=== PATIENT | female | born 1980 ===

== ENCOUNTER 2016-10-13 05:42 | Emergency (ER) | payer BC, OTHER ==
[2016-10-13] MEDS ORDERED: Sodium Chloride 0.9% 1,000 ML IV ONE (06:08)
--- NOTE | 2016-10-13 06:11 | C.PDOC ---
History Of Present Illness 36 year old female with no PMH presents to ED with complaints of midsternal chest pain since yesterday. Patient describes pain as tightness and worse with deep inspiration. Additionally she reports frontal headache, malaise, and nausea for 2 days, she is currently on menses. She took Aleve yesterday with temporary relief. Denies any fever, cough, SOB, weakness, numbness or dizziness. Time Seen by Provider: 10/13/16 06:03 Chief Complaint (Nursing): Chest Pain History Per: Patient History/Exam Limitations: no limitations Onset/Duration Of Symptoms: Days Past Medical History Reviewed: Historical Data, Nursing Documentation, Vital Signs Vital Signs: Last Vital Signs Temp 98 F 10/13/16 05:48 Pulse 72 10/13/16 05:48 Resp 18 10/13/16 05:48 BP 131/80 10/13/16 05:48 Pulse Ox 100 10/13/16 06:40 - Medical History PMH: No Chronic Diseases Surgical History: No Surg Hx Family History: States: Diabetes, Hypertension - Social History Hx Alcohol Use: Yes Hx Substance Use: No - Immunization History Hx Tetanus Toxoid Vaccination: Yes Hx Influenza Vaccination: No Hx Pneumococcal Vaccination: No Review Of Systems Constitutional: Positive for: Malaise. Negative for: Fever Eyes: Negative for: Pain, Vision Change ENT: Negative for: Ear Pain, Nose Congestion, Throat Pain Cardiovascular: Positive for: Chest Pain. Negative for: Palpitations Respiratory: Negative for: Cough, Shortness of Breath, Wheezing Gastrointestinal: Positive for: Nausea. Negative for: Abdominal Pain, Diarrhea Genitourinary: Negative for: Dysuria, Frequency Musculoskeletal: Negative for: Shoulder Pain, Arm Pain, Back Pain Skin: Negative for: Rash Neurological: Positive for: Headache. Negative for: Weakness, Numbness, Dizziness Physical Exam - Physical Exam Appears: Non-toxic Skin: Warm, Dry, No Diaphoretic, No Rash Head: Atraumatic, Normacephalic Eye(s): bilateral: Normal Inspection, EOMI Nose: Normal Oral Mucosa: Moist Throat: Normal, No Erythema, No Exudate Neck: Normal ROM Chest: Symmetrical, Tenderness (midsternal) Cardiovascular: Rhythm Regular, No Murmur Respiratory: Normal Breath Sounds, No Rales, No Rhonchi, No Wheezing Gastrointestinal/Abdominal: Normal Exam, Soft, No Tenderness, No Distention, No Guarding Back: Normal Inspection, No CVA Tenderness, No Vertebral Tenderness, No Paraspinal Tenderness Extremity: Bilateral: Atraumatic, No Pedal Edema, Normal Color And Temperature, Normal ROM Neurological/Psych: Oriented x3, Normal Speech, Normal Motor, Normal Sensation Gait: Steady ED Course And Treatment ECG: Interpreted By Me, Viewed By Me (and Dr Lane) ECG Rhythm: Sinus Rhythm ECG Interpretation: No Acute Changes Interpretation Of ECG: NS at 67 bpm with PAC, no acute ST-T changes O2 Sat by Pulse Oximetry: 100 (room air) Pulse Ox Interpretation: Normal - Radiology CXR: Interpreted by Me, Viewed By Me CXR Interpretation: Yes: No Acute Disease Medical Decision Making Medical Decision Making: Impression: 36 y.o female with midsternal chest pain, headache nausea. Suspect anxiety, musculoskeletal, , less likely ACS Plan: * EKG * CXR * Labs * IV NS, Reglan Progress: Patient assessed and examined. EKG obtained and reviewed and NS with PAC. CXR shows no acute cardiopulmonary process. Labs ordered. Case signed out to YAN Holloway, pending labs and re-eval. 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 Physician Patient Turnover Patient Signed Over To: Zoila Holloway Handoff Comments: Pending labs, re-eval and dispo
[2016-10-13 06:51] LABS: BASO # 0.1 K/uL (0.0-0.2); EOS # 0.2 K/uL (0.0-0.7); EOS % 1.7 % (0.0-4.0); HEMATOCRIT 37.1 % (34.0-47.0); LYMPH # 2.9 K/uL (1.0-4.3); LYMPH % 29.4 % (20.0-40.0); MEAN CORPUSCULAR HEMOGLOBIN 28.1 pg (27.0-31.0); MEAN CORPUSCULAR HGB CONC 33.1 g/dL (33.0-37.0); MEAN PLATELET VOLUME 8.3 fL (7.2-11.7); MONO # 0.6 K/uL (0.0-0.8); MONO % 6.3 % (0.0-10.0); RED CELL DISTRIBUTION WIDTH 13.2 % (11.5-14.5)
[2016-10-13 06:52] LABS: CHLORIDE 99 mmol/L (98-107); SODIUM 137 mmol/L (132-148)
[2016-10-13 06:53] LABS: POTASSIUM 3.3 mmol/L (3.6-5.2)
[2016-10-13 06:55] LABS: ALB/GLOB RATIO 1.3 (1.0-2.1); AST/SGOT 22 U/L (14-36); BILIRUBIN,TOTAL 0.7 mg/dL (0.2-1.3); BLOOD UREA NITROGEN 11 mg/dL (7-17); CARBON DIOXIDE 28 mmol/L (22-30); GFR AFRICAN-AMERICAN > 60; GLUCOSE,RANDOM 85 mg/dL (65-105); TOTAL PROTEIN 7.2 g/dL (6.3-8.3)
[2016-10-13 06:56] LABS: ALKALINE PHOSPHATASE 49 U/L (38-126); ALT/SGPT 15 U/L (9-52); CALCIUM 9.1 mg/dl (8.6-10.4)
[2016-10-13 07:32] VITALS: RESP 20
[2016-10-13 07:46] LABS: RBC URINE 4 /hpf (0-3); URINE BACTERIA OCC (<OCC); URINE BILIRUBIN NEGATIVE (NEGATIVE); URINE BLOOD 3+ (NEGATIVE); URINE COLOR Straw (YELLOW); URINE GLUCOSE (UA) NORMAL (Normal); URINE KETONE NEGATIVE (NEGATIVE); URINE LEUKOCYTE ESTERASE NEG Leu/uL (Negative); URINE PROTEIN NEGATIVE (NEGATIVE); URINE UROBILINOGEN NORMAL mg/dL (0.2-1.0); WBC URINE 3 /hpf (0-5)
[2016-10-13 08:23] VITALS: BP 110/71; PULSE 78; TEMP 98; O2SAT 98
--- NOTE | 2016-10-13 09:49 | RAD ---
HISTORY: pain COMPARISON: No prior. TECHNIQUE: Chest PA and lateral FINDINGS: LUNGS: Biapical pleural thickening with upper lobe granulomatous changes. No focal infiltrate or effusion. Bibasilar breast and nipple shadows. PLEURA: No significant pleural effusion identified. No pneumothorax apparent. CARDIOVASCULAR: Normal. OSSEOUS STRUCTURES: No significant abnormalities. VISUALIZED UPPER ABDOMEN: Normal. OTHER FINDINGS: None. IMPRESSION: No active disease.
--- NOTE | 2016-10-16 17:50 | CARD ---
APPROVED REPORT EKG Measurement Heart [id number] <Conclusion> Sinus rhythm with premature atrial complexes Otherwise normal ECG
== END 2016-10-13 08:23 | disposition home or self-care (01) ==
LOC: SUPCPDRO 05:42 → C.ER 05:42
DX: R07.89 Other chest pain (principal)
CPT/HCPCS: 71020; 80053; 81001; 84484; 85025; 93005; 99284; J2765; J7040

== ENCOUNTER 2017-02-10 23:57 | Emergency (ER) | payer OTHER ==
[2017-02-11 00:06] VITALS: O2SAT 99
[2017-02-11] MEDS ORDERED: Albuterol-Ipratrop 3 mg / 0.5 (3 ml) UD IH STA (00:35)
[2017-02-11] MEDS ORDERED: Albuterol 0.083% Inhal Sol (2.5 mg/3 mL) UD IH STA (00:38)
[2017-02-11] MEDS ORDERED: Albuterol 0.083% Inhal Sol (2.5 mg/3 mL) UD ONE (00:39)
[2017-02-11 01:11] VITALS: RESP 18
[2017-02-11 01:28] VITALS: BP 112/72; PULSE 93; TEMP 98.2
--- NOTE | 2017-02-11 01:29 | C.PDOC ---
History Of Present Illness 37 year old female who presents to the ER with a complaint of generalized body aches, nasal congestion, and cough with pain to the bilateral side of her chest pain described as tightness. Patient denies SOB, fever, or recent travel. Time Seen by Provider: 02/11/17 00:15 Chief Complaint (Nursing): Chest Pain History Per: Patient History/Exam Limitations: no limitations Onset/Duration Of Symptoms: Days Current Symptoms Are (Timing): Still Present Location Of Pain: Diffuse Myalgias, Other (Bilateral sides of chest with cough) Sick Contacts (Context): None Associated Symptoms: Cough (w/ pain to bilateral sides of chest), Nasal Congestion. denies: Fever, Other (Chest pain) Recent travel outside of the [place]: No Past Medical History Reviewed: Historical Data, Nursing Documentation, Vital Signs Vital Signs: Last Vital Signs Temp 98.2 F 02/11/17 01:27 Pulse 93 H 02/11/17 01:27 Resp 18 02/11/17 01:27 BP 112/72 02/11/17 01:27 Pulse Ox 99 02/11/17 05:39 - Medical History PMH: No Chronic Diseases Surgical History: No Surg Hx Family History: States: Diabetes, Hypertension - Social History Hx Alcohol Use: Yes Hx Substance Use: No - Immunization History Hx Tetanus Toxoid Vaccination: Yes Hx Influenza Vaccination: Yes Hx Pneumococcal Vaccination: No Review Of Systems Constitutional: Negative for: Fever, Chills ENT: Positive for: Nose Congestion Respiratory: Positive for: Cough Musculoskeletal: Positive for: Other (Generalized body aches) Physical Exam - Physical Exam Appears: Non-toxic, No Acute Distress Skin: Normal Color, Warm, Dry Head: Atraumatic, Normacephalic Eye(s): bilateral: Normal Inspection, PERRL Nose: Other (Congestion) Oral Mucosa: Moist Throat: Normal, No Erythema, No Exudate Neck: Normal, Supple Chest: Symmetrical, No Tenderness Cardiovascular: Rhythm Regular Respiratory: Normal Breath Sounds, No Accessory Muscle Use, No Rales, No Rhonchi , No Stridor, No Wheezing Neurological/Psych: Oriented x3, Normal Speech Gait: Steady ED Course And Treatment ECG: Interpreted By Me, Viewed By Me ECG Rhythm: Sinus Rhythm (at 95) O2 Sat by Pulse Oximetry: 99 Pulse Ox Interpretation: Normal - Radiology CXR: Interpreted by Me, Viewed By Me CXR Interpretation: Yes: No Acute Disease Progress Note: CXR ordered. Motrin, prednisone, and nebulizer treatment administered. On reevaluation, patient states she feels better and is in no acute distress; will discharge home with Rx and instructions to follow up with PMD. Disposition Counseled Patient/Family Regarding: Studies Performed, Diagnosis, Need For Followup, Rx Given - Disposition Referrals: [facility] [Outside] Disposition: HOME/ ROUTINE Disposition Time: :27 Condition: STABLE Additional Instructions: Increase po fluids Take meds as directed Return to ER if worse Prescriptions: Benzonatate [Tessalon Perles] 100 mg PO TID #20 sgl Cetirizine HCl [Zyrtec] 10 mg PO DAILY #20 capsule Ibuprofen [Motrin] 600 mg PO Q6H #30 tab predniSONE [Prednisone] 40 mg PO DAILY #6 tab Instructions: Upper Respiratory Infection (ED) Forms: [facility] (Hungarian), Work Excuse - Clinical Impression Clinical Impression: Respiratory tract infection - Scribe Statement The provider has reviewed the documentation as recorded by the Scribe Armando Carolina All medical record entries made by the Scribe were at my direction and personally dictated by me. I have reviewed the chart and agree that the record accurately reflects my personal performance of the history, physical exam, medical decision making, and the department course for this patient. I have also personally directed, reviewed, and agree with the discharge instructions and disposition.
--- NOTE | 2017-02-11 07:59 | RAD ---
HISTORY: cough, chest tightness COMPARISON: Comparison is made to 10/13/2016 TECHNIQUE: Chest PA and lateral FINDINGS: LUNGS: No active pulmonary disease. PLEURA: No significant pleural effusion identified. No pneumothorax apparent. CARDIOVASCULAR: Normal. OSSEOUS STRUCTURES: No significant abnormalities. VISUALIZED UPPER ABDOMEN: Normal. OTHER FINDINGS: None. IMPRESSION: No active disease.
== END 2017-02-11 01:35 | disposition home or self-care (01) ==
LOC: C.ER 23:57
DX: J98.8 Other specified respiratory disorders (principal)

== ENCOUNTER 2017-02-17 12:48 | Emergency (ER) | payer OTHER ==
[2017-02-17] MEDS ORDERED: Sodium Chloride 0.9% 1,000 ML IV ONE ×2 (13:25→14:41)
[2017-02-17 13:40] LABS: RBC URINE 1 /hpf (0-3); URINE BACTERIA OCC (<OCC); URINE BILIRUBIN NEGATIVE (NEGATIVE); URINE BLOOD NEGATIVE (NEGATIVE); URINE COLOR Yellow (YELLOW); URINE GLUCOSE (UA) NORMAL (Normal); URINE KETONE NEGATIVE (NEGATIVE); URINE LEUKOCYTE ESTERASE NEG Leu/uL (Negative); URINE PROTEIN NEGATIVE (NEGATIVE); URINE UROBILINOGEN NORMAL mg/dL (0.2-1.0); WBC URINE 1 /hpf (0-5)
[2017-02-17 13:43] LABS: BASO % 0.4 % (0.0-2.0); EOS # 0.2 K/uL (0.0-0.7); HEMATOCRIT 36.8 % (34.0-47.0); LYMPH # 4.1 K/uL (1.0-4.3); LYMPH % 37.5 % (20.0-40.0); MEAN CELL VOLUME 83.4 fL (81.0-99.0); MEAN CORPUSCULAR HEMOGLOBIN 27.6 pg (27.0-31.0); MEAN CORPUSCULAR HGB CONC 33.1 g/dL (33.0-37.0); MEAN PLATELET VOLUME 7.8 fL (7.2-11.7); MONO # 0.5 K/uL (0.0-0.8); MONO % 4.3 % (0.0-10.0); RED CELL DISTRIBUTION WIDTH 13.3 % (11.5-14.5)
[2017-02-17] MEDS ORDERED: Sodium Chloride 0.9% 1,000 ML ONE ×2 (13:43→14:47)
[2017-02-17 13:51] LABS: CHLORIDE 99 mmol/L (98-107); POTASSIUM 3.4 mmol/L (3.6-5.2); SODIUM 134 mmol/L (132-148)
[2017-02-17 13:53] LABS: AST/SGOT 13 U/L (14-36); BILIRUBIN,TOTAL 0.3 mg/dL (0.2-1.3); CARBON DIOXIDE 24 mmol/L (22-30); GFR AFRICAN-AMERICAN > 60
[2017-02-17 13:54] LABS: ALKALINE PHOSPHATASE 52 U/L (38-126); ALT/SGPT 23 U/L (9-52); BLOOD UREA NITROGEN 12 mg/dL (7-17); CALCIUM 9.1 mg/dl (8.6-10.4); GLUCOSE,RANDOM 90 mg/dL (65-105); TOTAL PROTEIN 7.4 g/dL (6.3-8.3)
--- NOTE | 2017-02-17 14:37 | US ---
HISTORY: epigastric/RUQ tenderness COMPARISON: None available. TECHNIQUE: Sonographic evaluation of the abdomen. FINDINGS: LIVER: Measures 15.9 cm in sagittal dimension and appears unremarkable. No focal hepatic mass identified. The main portal vein appears patent with normal directional flow. No intrahepatic bile duct dilatation. GALLBLADDER: No gallstones. No gallbladder wall thickening. Negative sonographic Garcia's sign as assessed by the wearing apparel presser. COMMON BILE DUCT: Measures 5 mm. PANCREAS: Not well visualized. RIGHT KIDNEY: Measures 10.9 x 4.3 x 5.0cm. No obstructing calculus or hydronephrosis identified. LEFT KIDNEY: Measures 11.2 x 5.3 x 5.4cm. No obstructing calculus or hydronephrosis identified. SPLEEN: Measures approximately 10.1 cm. AORTA: Limited views appear unremarkable. IVC: Limited views appear unremarkable. OTHER FINDINGS: None. IMPRESSION: Unremarkable abdominal sonogram with findings as above.
[2017-02-17 15:33] VITALS: RESP 18; TEMP 97.6
[2017-02-17] MEDS ORDERED: Aluminum Hydroxide/Magnesium Hydroxide Susp (30 mL) PO STA (15:43)
[2017-02-17] MEDS ORDERED: Alum-Mag Hydrox-Simethicone Susp (30 mL) ONE (15:45)
[2017-02-17 17:34] VITALS: BP 118/76; PULSE 86; O2SAT 99
--- NOTE | 2017-02-17 18:08 | C.PDOC ---
History Of Present Illness 37 year old female presents to the ED for evaluation of abdominal pain, nausea and vomiting which began at around 0630 this morning. Patient is unsure how many episodes of vomiting she has had. Patient states her diet has mostly consisted of home-cooked meals, aside from eating pizza last night. Patient denies fever, chills, bloody vomitus, bloody stool, diarrhea, constipation, dysuria, or recent travel. Time Seen by Provider: 02/17/17 13:16 Chief Complaint (Nursing): Abdominal Pain History Per: Patient History/Exam Limitations: no limitations Onset/Duration Of Symptoms: Hrs Current Symptoms Are (Timing): Still Present Quality Of Discomfort: "Pain" Associated Symptoms: Nausea, Vomiting. denies: Fever, Chills, Urinary Symptoms Additional History Per: Patient Abnormal Vaginal Bleeding: No Past Medical History Reviewed: Historical Data, Nursing Documentation, Vital Signs Vital Signs: Last Vital Signs Temp 97.6 F 02/17/17 15:32 Pulse 86 02/17/17 17:33 Resp 18 02/17/17 17:33 BP 118/76 02/17/17 17:33 Pulse Ox 99 02/17/17 18:15 - Medical History PMH: No Chronic Diseases Surgical History: No Surg Hx Family History: States: Diabetes, Hypertension - Social History Hx Alcohol Use: Yes Hx Substance Use: No - Immunization History Hx Tetanus Toxoid Vaccination: Yes Hx Influenza Vaccination: Yes Hx Pneumococcal Vaccination: No Review Of Systems Constitutional: Negative for: Fever, Chills Gastrointestinal: Positive for: Nausea, Vomiting, Abdominal Pain (diffuse ) Genitourinary: Negative for: Dysuria Physical Exam - Physical Exam Appears: Non-toxic, No Acute Distress Skin: Normal Color, Warm, Dry Head: Atraumatic, Normacephalic Eye(s): bilateral: Normal Inspection Oral Mucosa: Moist Neck: Supple Chest: Symmetrical, No Deformity, No Tenderness Cardiovascular: Rhythm Regular, No Murmur Respiratory: Normal Breath Sounds, No Rales, No Rhonchi, No Wheezing Gastrointestinal/Abdominal: Bowel Sounds (unremarkable ), Soft, Tenderness ( epigastric ), No Guarding, No Rebound Extremity: Normal ROM, Capillary Refill (less than 2 seconds ) Neurological/Psych: Oriented x3, Normal Speech, Normal Cognition Gait: Steady ED Course And Treatment - Laboratory Results Result Diagrams: 02/17/17 13:40 02/17/17 13:40 O2 Sat by Pulse Oximetry: 99 (on RA) Pulse Ox Interpretation: Normal Progress Note: labs, US Abdomen ordered and reviewed. Patient received Maalox PO , Pepcid IVP, Reglan IVP, Tylenol PO, Zofran IVP and IV Fluids. On reassessment , patient is resting comfortably, showing no signs of distress and reports an improvement in her symptoms. Patient is stable for discharge and is advised to follow up with her PMD within 1-2 days for further evaluation. Disposition - Disposition Disposition: HOME/ ROUTINE Disposition Time: 16:30 Condition: IMPROVED Additional Instructions: Thank you for letting us take care of you today. Your provider was Dr. Redmond. You were treated for abdominal pain. The emergency medical care you received today was directed at your acute symptoms. If you were prescribed any medication, please fill it and take as directed. It may take several days for your symptoms to resolve. Return to the Emergency Department if your symptoms worsen, do not improve, or if you have any other problems. Please contact your doctor or call one of the physicians/clinics you have been referred to that are listed on the Patient Visit Information form that is included in your discharge packet. Bring any paperwork you were given at discharge with you along with any medications you are taking to your follow up visit. Our treatment cannot replace ongoing medical care by a primary care provider (PCP) outside of the emergency department. Thank you for allowing the [facility] team to be part of your care today. Follow up with your doctor in 2-3 days for re-evaluation and further management. Prescriptions: Metoclopramide [Reglan] 10 mg PO Q8 PRN #10 tab PRN Reason: Nausea/Vomiting Ranitidine HCl [Zantac] 150 mg PO BID #20 tablet Instructions: Gastritis (ED), Dehydration (ED) Forms: Work Excuse - Clinical Impression Clinical Impression: Abdominal pain - Scribe Statement The provider has reviewed the documentation as recorded by the Scribe ([place]) Provider Attestation: All medical record entries made by the Scribe were at my direction and personally dictated by me. I have reviewed the chart and agree that the record accurately reflects my personal performance of the history, physical exam, medical decision making, and the department course for this patient. I have also personally directed, reviewed, and agree with the discharge instructions and disposition.
== END 2017-02-17 17:33 | disposition home or self-care (01) ==
LOC: C.ER 12:48
DX: R10.9 Unspecified abdominal pain (principal)
CPT/HCPCS: 76700; 80053; 81001; 83690; 84703; 85025; 96361; 96374; 96375; 96376; 99285; J2405; J2765; J7040

== ENCOUNTER 2017-08-03 11:54 | Emergency (ER) | payer OTHER ==
--- NOTE | 2017-08-03 12:35 | C.PDOC ---
History Of Present Illness 37 yo female c/o left knee pain for 2 weeks. Pt notes it bothers her when she is walking up the stairs and bending down. She feels like her knee is "locking" . 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 H/o Left fibular fx 8 years ago, non surgical. Pt took aleve this morning but pain persists. Denies trauma, change in sensation, change in color or temperature of the leg, weakness, h/o gout, lower leg pain or swelling. No BC. No prolong immobilization. Time Seen by Provider: 08/03/17 12:21 Chief Complaint (Nursing): Lower Extremity Problem/Injury History Per: Patient History/Exam Limitations: no limitations Onset/Duration Of Symptoms: Days (2 weeks) Current Symptoms Are (Timing): Still Present Past Medical History Vital Signs: Last Vital Signs Temp 98.2 F 08/03/17 13:13 Pulse 76 08/03/17 13:13 Resp 18 08/03/17 13:13 BP 120/82 08/03/17 13:13 Pulse Ox 100 08/03/17 13:13 Family History: States: Diabetes, Hypertension - Social History Hx Alcohol Use: Yes Hx Substance Use: No - Immunization History Hx Tetanus Toxoid Vaccination: No Hx Influenza Vaccination: Yes Hx Pneumococcal Vaccination: No Review Of Systems Except As Marked, All Systems Reviewed And Found Negative. Physical Exam - Physical Exam Appears: Well, Non-toxic, No Acute Distress Skin: Normal Color, Warm, Dry Head: Atraumatic, Normacephalic Eye(s): bilateral: Normal Inspection, EOMI Nose: Normal Oral Mucosa: Moist Neck: Normal, Normal ROM, Supple Chest: Symmetrical Respiratory: No Accessory Muscle Use Back: Normal Inspection Extremity: Normal ROM, Pedal Edema, No Calf Tenderness, Capillary Refill (<2 sec ), No Swelling Extremity: Bilateral: Atraumatic, Normal Color And Temperature, Normal ROM Pulses: Left Dorsalis Pedis: Normal, Right Dorsalis Pedis: Normal Neurological/Psych: Oriented x3, Normal Motor, Normal Sensation Gait: Steady ED Course And Treatment O2 Sat by Pulse Oximetry: 97 - Other Rad L Knee XR X-Ray: Interpreted by Me, Viewed By Me Interpretation: No fx or dislocation Progress Note: Tramadol ordered. Knee brace applied by credit risk officer. Pt instructed TRELL and to follow up with PMD/ortho in 1-2 days. Disposition - Disposition Referrals: Dillon Chester III, MD [Staff Provider] - Disposition: HOME/ ROUTINE Disposition Time: 12:41 Condition: STABLE Additional Instructions: Follow up with your PMD / bone doctor in 1-2 days. Prescriptions: Naproxen [Naprosyn] 1 tab PO BID PRN #20 tab PRN Reason: Pain Instructions: Knee Pain Forms: [facility] (Lebanese), Work Excuse - Clinical Impression Clinical Impression: Knee strain
--- NOTE | 2017-08-03 13:07 | RAD ---
PROCEDURE: Left Knee Radiographs. HISTORY: Pain. COMPARISON: None. FINDINGS: BONES: No acute fracture. Healed fracture proximal fibular diaphysis. JOINTS: Normal. No osteoarthritis. JOINT EFFUSION: None. OTHER FINDINGS: None. IMPRESSION: No acute fracture. Unremarkable knee.
[2017-08-03 13:14] VITALS: BP 120/82; PULSE 76; RESP 18; TEMP 98.2
[2017-08-03 15:35] VITALS: O2SAT 97
== END 2017-08-03 13:26 | disposition home or self-care (01) ==
LOC: C.ER 11:54
DX: S76.912A Strain of unspecified muscles, fascia and tendons at thigh level, left thigh, initial encounter (principal); X58.XXXA Exposure to other specified factors, initial encounter

== ENCOUNTER 2018-02-20 12:18 | Emergency (ER) | payer OTHER ==
[2018-02-20 12:18] VITALS: BMI 34.5
[2018-02-20 12:59] VITALS: RESP 16
--- NOTE | 2018-02-20 13:46 | C.PDOC ---
History Of Present Illness 38 y/o F c no PMHx p/w chest pain x 4 days. Pain is midsternal, characterized as pressure, nonradiating, associated with flushed feeling, nausea, and general weakness. Patient notes the symptoms began the day she was given the flu shot 1 week ago. She denies fever, chills, dyspnea, vomiting, diarrhea, constipation, dysuria, vaginal bleeding. LMP about 02/03, normal timing and flow. Time Seen by Provider: 02/20/18 13:06 Chief Complaint (Nursing): Chest Pain Past Medical History Vital Signs: Last Vital Signs Temp 99.2 F 02/20/18 12:58 Pulse 69 02/20/18 13:00 Resp 16 02/20/18 12:58 BP 108/54 L 02/20/18 12:58 Pulse Ox 99 02/20/18 12:58 - Medical History PMH: Hypothyroidism Family History: States: Unknown Family Hx, Diabetes, Hypertension - Social History Hx Alcohol Use: No Hx Substance Use: No - Immunization History Hx Tetanus Toxoid Vaccination: No Hx Influenza Vaccination: Yes Hx Pneumococcal Vaccination: No Review Of Systems Except As Marked, All Systems Reviewed And Found Negative. Constitutional: Negative for: Fever Respiratory: Negative for: Shortness of Breath Physical Exam - Physical Exam Additional Physical Exam Comments: Constitutional: No acute distress. Head: Normocephalic. Atraumatic. Eyes: PERRL. ENT: Moist mucous membranes. Neck: Supple. Cardiovascular: Regular rate. Radial pulse 2+ bilaterally. Chest: No tenderness. Respiratory: Clear to auscultation bilaterally. GI: Soft. Nontender. Nondistended. Back: No CVA tenderness. Musculoskeletal: No tenderness or swelling of extremities. Skin: No rash. Neurologic: Alert, no focal deficit. ED Course And Treatment - Laboratory Results Result Diagrams: 02/20/18 13:44 02/20/18 13:44 O2 Sat by Pulse Oximetry: 99 Medical Decision Making Medical Decision Making: EKG NSR 86 bpm, no ST/T wave changes, normal intervals CXR: HISTORY: chest pressure COMPARISON: Comparison chest 01/11/2017. TECHNIQUE: Chest PA and lateral FINDINGS: LUNGS: No active pulmonary disease. PLEURA: No significant pleural effusion identified. No pneumothorax apparent. CARDIOVASCULAR: Normal. OSSEOUS STRUCTURES: No significant abnormalities. VISUALIZED UPPER ABDOMEN: Normal. OTHER FINDINGS: None. IMPRESSION: No active disease. Labs unremarkable. Vital signs unremarkable. Discharged home, f/u PMD, return to ED for worsening dyspnea, pain, fever, vomiting, or any other problem. Disposition - Disposition Disposition: HOME/ ROUTINE Disposition Time: 14:43 Condition: STABLE Instructions: Chest Pain Forms: [facility] (Japanese), Work Excuse - Clinical Impression Clinical Impression: Chest pain
[2018-02-20 13:52] LABS: BASO % 0.3 % (0.0-2.0); EOS # 0.5 K/uL (0.0-0.7); EOS % 4.5 % (0.0-4.0); HEMOGLOBIN 12.3 g/dL (11.0-16.0); LYMPH # 2.9 K/uL (1.0-4.3); LYMPH % 27.6 % (20.0-40.0); MEAN CELL VOLUME 82.8 fL (81.0-99.0); MEAN CORPUSCULAR HEMOGLOBIN 27.6 pg (27.0-31.0); MEAN CORPUSCULAR HGB CONC 33.3 g/dL (33.0-37.0); MEAN PLATELET VOLUME 8.1 fL (7.2-11.7); MONO # 0.6 K/uL (0.0-0.8); MONO % 5.5 % (0.0-10.0); NEUT # 6.5 K/uL (1.8-7.0); NEUT % 62.1 % (50.0-75.0); NRBC % 0.1 % (0.0-2.0); RBC 4.46 Mil/uL (3.80-5.20)
[2018-02-20 13:54] LABS: URINE BACTERIA RARE (<OCC); URINE BILIRUBIN NEGATIVE (NEGATIVE); URINE BLOOD NEGATIVE (NEGATIVE); URINE CLARITY Clear (Clear); URINE COLOR Colorless (YELLOW); URINE GLUCOSE (UA) NORMAL (Normal); URINE LEUKOCYTE ESTERASE NEG Leu/uL (Negative); URINE PROTEIN NEGATIVE (NEGATIVE); URINE UROBILINOGEN NORMAL mg/dL (0.2-1.0); WHITE BLOOD COUNT 10.5 K/uL (4.8-10.8)
[2018-02-20 13:55] LABS: HCG,QUALITATIVE URINE NEGATIVE (NEGATIVE)
--- NOTE | 2018-02-20 14:03 | RAD ---
Date of service: 02/20/2018 HISTORY: chest pressure COMPARISON: Comparison chest 01/11/2017. TECHNIQUE: Chest PA and lateral FINDINGS: LUNGS: No active pulmonary disease. PLEURA: No significant pleural effusion identified. No pneumothorax apparent. CARDIOVASCULAR: Normal. OSSEOUS STRUCTURES: No significant abnormalities. VISUALIZED UPPER ABDOMEN: Normal. OTHER FINDINGS: None. IMPRESSION: No active disease.
[2018-02-20 14:05] LABS: ALB/GLOB RATIO 1.3 (1.0-2.1); ALBUMIN 4.4 g/dL (3.5-5.0); ALT/SGPT 23 U/L (9-52); AST/SGOT 17 U/L (14-36); BLOOD UREA NITROGEN 12 mg/dL (7-17); CALCIUM 9.7 mg/dl (8.6-10.4); GFR NON-AFRICAN AMERICAN > 60; LIPASE 65 U/L (23-300)
[2018-02-20 14:16] LABS: CK-MB 0.42 ng/mL (0.0-3.38)
[2018-02-20 15:15] VITALS: BP 114/75; PULSE 70; TEMP 98.2; O2SAT 100
--- NOTE | 2018-02-22 08:15 | CARD ---
APPROVED REPORT Date of service: 02/20/2018 EKG Measurement Heart [id number] ID [id number] <Conclusion> Normal sinus rhythm Normal ECG
== END 2018-02-20 15:33 | disposition home or self-care (01) ==
LOC: C.ER 12:18
DX: R07.9 Chest pain, unspecified (principal); E03.9 Hypothyroidism, unspecified

== ENCOUNTER 2018-03-15 13:12 | Emergency (ER) | payer OTHER ==
[2018-03-15 13:29] VITALS: BMI 29.9
[2018-03-15 13:32] VITALS: RESP 18; O2SAT 100
--- NOTE | 2018-03-15 14:43 | C.PDOC ---
History Of Present Illness 38 y/o female presents to ED with c/o headache, nausea, vomiting and feeling flushed for 3 days associated with generalized weakness and diarrhea. Patient reports unable to tolerate po intake and denies fever, chills, blood in stool, vision changes, dysuria or any other complaints at this time. Time Seen by Provider: 03/15/18 14:10 Chief Complaint (Nursing): Headache History Per: Patient History/Exam Limitations: no limitations Onset/Duration Of Symptoms: Days Current Symptoms Are (Timing): Still Present Past Medical History Reviewed: Historical Data, Nursing Documentation, Vital Signs Vital Signs: Last Vital Signs Temp 98.3 F 03/15/18 13:28 Pulse 78 03/15/18 13:28 Resp 18 03/15/18 13:28 BP 116/79 03/15/18 13:28 Pulse Ox 100 03/15/18 13:28 - Medical History PMH: Hypothyroidism Surgical History: No Surg Hx Family History: States: Diabetes, Hypertension - Social History Hx Alcohol Use: No Hx Substance Use: No - Immunization History Hx Tetanus Toxoid Vaccination: No Hx Influenza Vaccination: Yes Hx Pneumococcal Vaccination: No Review Of Systems Constitutional: Negative for: Fever, Chills Gastrointestinal: Positive for: Nausea, Vomiting, Abdominal Pain, Diarrhea Genitourinary: Negative for: Dysuria, Hematuria Skin: Negative for: Rash Neurological: Positive for: Headache. Negative for: Weakness, Numbness Physical Exam - Physical Exam Appears: Non-toxic Skin: Warm, Dry, No Rash Head: Atraumatic, Normacephalic Eye(s): bilateral: Normal Inspection Oral Mucosa: Moist Neck: Normal ROM, Supple Chest: Symmetrical, No Tenderness Cardiovascular: Rhythm Regular, No Friction Rub, No Murmur Respiratory: Normal Breath Sounds, No Rales, No Rhonchi, No Wheezing Gastrointestinal/Abdominal: Soft, No Tenderness, No Guarding, No Rebound Back: No CVA Tenderness Extremity: Normal ROM, No Swelling Neurological/Psych: Oriented x3, Normal Speech, Normal Cognition Gait: Steady ED Course And Treatment - Laboratory Results Result Diagrams: 03/15/18 15:01 03/15/18 15:00 O2 Sat by Pulse Oximetry: 100 (RA) Pulse Ox Interpretation: Normal Medical Decision Making Medical Decision Making: Labs and Vitals are WNLs. On re-exam, the patient reports improvement of symptoms. Lungs are CTA, heart is RRR, abdomen is soft, non-tender and the patient is tolerating PO well. Follow up with the medical doctor within 1-2 days. Return if worsened. Disposition - Disposition Referrals: [facility] [Outside] Disposition: HOME/ ROUTINE Disposition Time: 15:58 Condition: STABLE Additional Instructions: Follow up with the medical doctor within 1-2 days. Return if worsened. 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 - Scribe Statement The provider has reviewed the documentation as recorded by the Marlonibsanchez Driscoll All medical record entries made by the Marlonibsanchez were at my direction and personally dictated by me. I have reviewed the chart and agree that the record accurately reflects my personal performance of the history, physical exam, medical decision making, and the department course for this patient. I have also personally directed, reviewed, and agree with the discharge instructions and disposition.
[2018-03-15] MEDS ORDERED: DiphenhydrAMINE 50 mg/ml Inj IVP STA (14:44)
[2018-03-15 15:09] LABS: SQUAMOUS EPITHIAL 3 /hpf (0-5); URINE BACTERIA RARE (<OCC); URINE BILIRUBIN NEGATIVE (NEGATIVE); URINE BLOOD 1+ (NEGATIVE); URINE CLARITY Hazy (Clear); URINE COLOR Yellow (YELLOW); URINE GLUCOSE (UA) NORMAL (Normal); URINE LEUKOCYTE ESTERASE NEG Leu/uL (Negative); URINE PROTEIN NEGATIVE (NEGATIVE); URINE UROBILINOGEN NORMAL mg/dL (0.2-1.0)
[2018-03-15 15:13] LABS: BASO % 0.2 % (0.0-2.0); EOS # 0.2 K/uL (0.0-0.7); EOS % 2.5 % (0.0-4.0); HEMOGLOBIN 11.5 g/dL (11.0-16.0); LYMPH # 2.7 K/uL (1.0-4.3); LYMPH % 32.2 % (20.0-40.0); MEAN CELL VOLUME 82.6 fL (81.0-99.0); MEAN CORPUSCULAR HEMOGLOBIN 27.8 pg (27.0-31.0); MEAN CORPUSCULAR HGB CONC 33.7 g/dL (33.0-37.0); MEAN PLATELET VOLUME 8.3 fL (7.2-11.7); MONO # 0.4 K/uL (0.0-0.8); MONO % 5.2 % (0.0-10.0); NEUT # 4.9 K/uL (1.8-7.0); NEUT % 59.9 % (50.0-75.0); RBC 4.14 Mil/uL (3.80-5.20); RED CELL DISTRIBUTION WIDTH 13.5 % (11.5-14.5); WHITE BLOOD COUNT 8.3 K/uL (4.8-10.8)
[2018-03-15] MEDS ORDERED: DiphenhydrAMINE 50 mg/ml Inj ONE (15:18)
[2018-03-15] MEDS ORDERED: Sodium Chloride 0.9% 1,000 ML ONE (15:19)
[2018-03-15 15:29] LABS: ALB/GLOB RATIO 1.3 (1.0-2.1); ALBUMIN 3.9 g/dL (3.5-5.0); ALT/SGPT 25 U/L (9-52); AST/SGOT 24 U/L (14-36); BLOOD UREA NITROGEN 10 mg/dL (7-17); GFR NON-AFRICAN AMERICAN > 60; LIPASE 38 U/L (23-300)
[2018-03-15] MEDS: Sodium Chloride 0.9% 1,000 ML IV ONE ×2 (15:35→16:25)
[2018-03-15 16:13] VITALS: BP 129/79; PULSE 64; TEMP 98.8
== END 2018-03-15 16:15 | disposition home or self-care (01) ==
LOC: C.ER 13:12
DX: B34.9 Viral infection, unspecified (principal)
CPT/HCPCS: 80053; 81001; 83690; 85025; 96361; 96374; 96375; 99285; J1200; J2765; J7030

== ENCOUNTER 2018-03-18 17:32 | Emergency (ER) | payer OTHER ==
[2018-03-18 17:33] VITALS: BMI 29.9
[2018-03-18 17:40] VITALS: BP 132/84; PULSE 107; TEMP 97.8; O2SAT 100
--- NOTE | 2018-03-18 18:09 | C.PDOC ---
History Of Present Illness 38 year old female presents to ED complaining of left sided headache. Patient was seen in ED recently for viral syndrome, lab tests were ordered and came back normal. Patient admitted to many sick contacts including boyfriend and child with similar symptoms. Patient reports taking Motrin once yesterday with no relief of symptoms. Denies fever, chills, chest pain, cough, shortness of breath, nausea, vomiting, diarrhea, weakness, numbness, dizziness. HPI: Influenza Time Seen by Provider: 03/18/18 17:46 Chief Complaint: Headache History Per: Patient Exam Limitations: no limitations Past Medical History Reviewed: Historical Data, Nursing Documentation, Vital Signs Vital Signs: Last Vital Signs Temp 97.8 F 03/18/18 17:36 Pulse 107 H 03/18/18 17:36 Resp 18 03/18/18 17:36 BP 132/84 03/18/18 17:36 Pulse Ox 100 03/18/18 17:36 - Medical History PMH: Hypothyroidism Surgical History: No Surg Hx Family History: States: Diabetes, Hypertension - Social History Hx Alcohol Use: No Hx Substance Use: No - Immunization History Hx Tetanus Toxoid Vaccination: No Hx Influenza Vaccination: Yes Hx Pneumococcal Vaccination: No Review Of Systems Except As Marked, All Systems Reviewed And Found Negative. Constitutional: Negative for: Fever, Chills Cardiovascular: Negative for: Chest Pain Respiratory: Negative for: Cough, Shortness of Breath Gastrointestinal: Negative for: Nausea, Vomiting, Diarrhea Neurological: Positive for: Headache (Left sided ). Negative for: Weakness, Numbness, Dizziness Physical Exam - Physical Exam Appears: Non-toxic, No Acute Distress Skin: Warm, Dry Head: Atraumatic, Normacephalic Eye(s): bilateral: PERRL, EOMI Nose: Other (Nasal congestion erythema without discharge. Left greater than right with kissing turbinates.) Oral Mucosa: Moist Neck: Supple Lymphatic: Other ((-) lymphadenopathy.) Chest: Symmetrical, No Deformity Cardiovascular: Rhythm Regular, No Murmur Respiratory: Normal Breath Sounds, No Rales, No Rhonchi, No Wheezing Gastrointestinal/Abdominal: Soft, No Tenderness Neurological/Psych: Oriented x3 Medical Decision Making Medical Decision Making: persistent mild viral syndrome symptoms L sinus headache Many sick contacts @ home with same. eval for same 03/15, w/u normal scant use of tylenol/motrin good relief with zofran/pepcid OTC Dayquil/Nyquil educated Flonase BID - ECG O2 Sat by Pulse Oximetry: 100 (RA) Pulse Ox Interpretation: Normal Disposition Doctor Will See Patient In The: Office Counseled Patient/Family Regarding: Studies Performed, Diagnosis - Disposition Referrals: [facility] [Outside] [facility] [Outside] [facility] [Outside] [facility] [Outside] Disposition: HOME/ ROUTINE Disposition Time: 18:09 Condition: GOOD Additional Instructions: Dayquil and Nyquil (or generic equivalent) as directed usually every 4-6 hours as needed Nyquil helps with sleep! Nasal congeston: Flonase nasal spray 1 spray to each nostril every 12 hours No prescription required decreases inflammation and pain of nasal passages which can provoke severe one- sided headaches symptoms will last 7-10 days. plenty of rest and fluids. outpatient follow-up as needed. Instructions: Sinus Headache (DC), Viral Syndrome (DC) Forms: [employer] (Nepalese) - Clinical Impression Clinical Impression: Headache, Viral syndrome - Scribe Statement The provider has reviewed the documentation as recorded by the Jesus Peralta Ernesto Provider Attestation: All medical record entries made by the Jesus were at my direction and personally dictated by me. I have reviewed the chart and agree that the record accurately reflects my personal performance of the history, physical exam, medical decision making, and the department course for this patient. I have also personally directed, reviewed, and agree with the discharge instructions and disposition.
[2018-03-18 18:28] VITALS: RESP 16
--- NOTE | 2018-03-21 15:30 | CARD ---
APPROVED REPORT Date of service: 03/18/2018 EKG Measurement Heart [id number] <Conclusion> Normal sinus rhythm Normal ECG
== END 2018-03-18 18:27 | disposition home or self-care (01) ==
LOC: C.ER 17:32
DX: B34.9 Viral infection, unspecified (principal); R51 Headache

== ENCOUNTER 2018-07-07 11:32 | Emergency (ER) | payer BC ==
[2018-07-07 11:32] VITALS: BMI 29.9
[2018-07-07 11:52] VITALS: BP 125/87; PULSE 70; RESP 18; TEMP 98.4; O2SAT 100
[2018-07-07 12:30] LABS: HCG,QUALITATIVE URINE NEGATIVE (NEGATIVE)
[2018-07-07 12:33] LABS: SQUAMOUS EPITHIAL 7 /hpf (0-5); URINE BACTERIA OCC (<OCC); URINE BILIRUBIN NEGATIVE (NEGATIVE); URINE BLOOD 1+ (NEGATIVE); URINE CLARITY Hazy (Clear); URINE COLOR Yellow (YELLOW); URINE GLUCOSE (UA) NORMAL (Normal); URINE LEUKOCYTE ESTERASE NEG Leu/uL (Negative); URINE PROTEIN NEGATIVE (NEGATIVE); URINE UROBILINOGEN NORMAL mg/dL (0.2-1.0)
--- NOTE | 2018-07-07 12:57 | C.PDOC ---
History Of Present Illness 38 year old female patient presents to the emergency room complainig of red, maroon colored stool for 3 days. Patient reports her stool was mostly red 3 days ago and thought it was due to the beets that was in her detox smoothie. Patient denies abdominal pain, rectal pain, fever, weakness or shortness of breath. Time Seen by Provider: 07/07/18 12:00 Chief Complaint (Nursing): GI Problem History Per: Patient History/Exam Limitations: no limitations Onset/Duration Of Symptoms: Days (x3) Current Symptoms Are (Timing): Still Present Past Medical History Reviewed: Historical Data, Nursing Documentation, Vital Signs Vital Signs: Last Vital Signs Temp 98.4 F 07/07/18 11:48 Pulse 70 07/07/18 11:48 Resp 18 07/07/18 11:48 BP 125/87 07/07/18 11:48 Pulse Ox 100 07/07/18 11:48 - Medical History PMH: Hypothyroidism Family History: States: Unknown Family Hx, Diabetes, Hypertension - Social History Hx Alcohol Use: Yes Hx Substance Use: No - Immunization History Hx Tetanus Toxoid Vaccination: No Hx Influenza Vaccination: Yes Hx Pneumococcal Vaccination: No Review Of Systems Constitutional: Negative for: Fever Cardiovascular: Negative for: Palpitations, Light Headedness Respiratory: Negative for: Shortness of Breath Gastrointestinal: Positive for: Other (red/maroon colored stool ). Negative for: Abdominal Pain, Rectal Pain Neurological: Negative for: Weakness Physical Exam - Physical Exam Appears: Non-toxic, No Acute Distress Skin: Warm, Dry, No Rash Head: Atraumatic, Normacephalic Eye(s): bilateral: Normal Inspection Oral Mucosa: Moist Throat: Normal Neck: Supple Chest: Symmetrical, No Tenderness Cardiovascular: Rhythm Regular, No Murmur Respiratory: Normal Breath Sounds, No Rales, No Rhonchi, No Wheezing Gastrointestinal/Abdominal: Bowel Sounds (normal active), Soft, No Tenderness, No Distention, No Guarding, No Rebound Rectal: Normal Exam, Rectal Tone (normal), No Maroon Stool, No Melena, No Blood Streaked Stool, No Hemorrhoids, No Tenderness Back: No CVA Tenderness Neurological/Psych: Oriented x3, Normal Speech Gait: Steady ED Course And Treatment - Laboratory Results Lab Results: Urine Color Yellow (YELLOW) 07/07/18 12:19 Urine Clarity Hazy (Clear) 07/07/18 12:19 Urine pH 5.0 (5.0-8.0) 07/07/18 12:19 Ur Specific [place] 1.015 (1.003-1.030) 07/07/18 12:19 Urine Protein Negative mg/dL (NEGATIVE) 07/07/18 12:19 Urine Glucose (UA) Normal mg/dL (Normal) 07/07/18 12:19 Urine Ketones Negative mg/dL (NEGATIVE) 07/07/18 12:19 Urine Blood 1+ (NEGATIVE) H 07/07/18 12:19 Urine Nitrate Negative (NEGATIVE) 07/07/18 12:19 Urine Bilirubin Negative (NEGATIVE) 07/07/18 12:19 Urine Urobilinogen Normal mg/dL (0.2-1.0) 07/07/18 12:19 Ur Leukocyte Esterase Neg Lalitha/uL (Negative) 07/07/18 12:19 Urine WBC (Auto) 2 /hpf (0-5) 07/07/18 12:19 Urine RBC (Auto) < 1 /hpf (0-3) 07/07/18 12:19 Ur Squamous Epith Cells 7 /hpf (0-5) H 07/07/18 12:19 Urine Bacteria Occ (<OCC) H 07/07/18 12:19 Urine HCG, Qual Negative (NEGATIVE) 07/07/18 12:19 Urine HCG, Qual Negative (NEGATIVE) 07/07/18 12:19 O2 Sat by Pulse Oximetry: 100 (RA) Pulse Ox Interpretation: Normal Medical Decision Making Medical Decision Making: Plan: -- UA -- Blood occult stool Progress: Results reviewed and stool occult negative. UA neg Patient stable for discharge. 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 - Scribe Statement The provider has reviewed the documentation as recorded by the Jesus Beavers Do All medical record entries made by the Marlonibsanchez were at my direction and personally dictated by me. I have reviewed the chart and agree that the record accurately reflects my personal performance of the history, physical exam, medical decision making, and the department course for this patient. I have also personally directed, reviewed, and agree with the discharge instructions and disposition.
== END 2018-07-07 13:03 | disposition home or self-care (01) ==
LOC: C.ER 11:32
DX: R19.4 Change in bowel habit (principal)
CPT/HCPCS: 81001; 84703; 99283; G0328

== ENCOUNTER 2018-09-04 11:51 | Outpatient (CLI) | payer OTHER | END 2018-09-04 11:52 | disposition home or self-care (01) | LOC: C.LAB 11:51 ==